=== PATIENT | female | born 1960 | race Caucasian/White ===

== ENCOUNTER → 2024-10-02 | Outpatient (CLI) | payer BC, SELFPAY ==
[2024-10-02 11:40] LABS: Glucose Estimated Average 157 mg/dL (80-131); Hemoglobin A1C 7.1 % Hgb (4.8-6.0)
[2024-10-02 11:55] LABS: Alanine Aminotransferase 143 U/L (10-49); Albumin/Globulin Ratio 2.1 (1.2-2.2); Alkaline Phosphatase 74 U/L (46-116); Anion Gap 10 (7-16); Aspartate Amino Transferase 128 U/L (0-34); BUN/Creatinine Ratio 15 Ratio (12-20); Bilirubin,Total 0.4 mg/dL (0.3-1.2); Blood Urea Nitrogen 15 mg/dL (9-23); Carbon Dioxide 24.1 mMol/L (20.0-31.0); Chloride 109 mMol/L (98-107); Globulin 2.4 gm/dL (2.3-3.5); Glucose 132 mg/dL (74-106); Osmolality,Calculated 287 (275-295); Sodium 143 mMol/L (136-145); Total Protein 7.4 gm/dL (5.7-8.2); eGFR > 60 See Note
== END | disposition home or self-care (01) ==
LOC: COPL 10:37
PROVIDERS: PCP Family Medicine; Referring Provider Family Medicine; Visit Provider Family Medicine
DX: E11.65 Type 2 diabetes mellitus with hyperglycemia (principal)
CPT/HCPCS: 36415; 80053; 83036

== ENCOUNTER → 2024-10-19 | Outpatient (CLI) | payer BC, SELFPAY ==
--- NOTE | 2024-10-19 09:59 | XR_ITS ---
Examination: Duplex scan of the lower extremity, unilateral left complete Date and time of exam: October 19, 2024 1033 hours INDICATIONS: Left knee swelling and pain beginning one month ago Technique: Duplex scan of the extremity veins using B-mode/grayscale imaging and Doppler spectral analysis and color flow Attention is directed to internal echogenicity, compression and augmentation involving these veins, color flow assessment, spectral analysis Findings: Major deep venous structures in the extremity demonstrate normal course and caliber. There is no evidence of deep vein thrombosis. Normal color flow and spectral analysis Left popliteal cyst 4.2 cm Impression: Negative for DVT..
--- NOTE | 2024-10-19 10:01 | XR_ITS ---
Examination: Knee, left , 3 views Technique: Knee AP, lateral, oblique 3 views Date and time of exam: October 19, 2024 1045 hours INDICATIONS: Left knee pain and swelling beginning 2 months ago. FINDINGS: Moderate narrowing medial joint space Mild osteoarthritis patellofemoral joint Moderate knee effusion No fracture IMPRESSION: Moderate narrowing medial joint space
== END | disposition home or self-care (01) ==
LOC: CDIM 09:37
PROVIDERS: PCP Family Medicine; Referring Provider Family Medicine; Visit Provider Family Medicine
DX: M25.862 Other specified joint disorders, left knee (principal)
CPT/HCPCS: 73562; 93971

== ENCOUNTER → 2025-01-31 | Outpatient (CLI) | payer BC, SELFPAY ==
--- NOTE | 2025-01-31 09:00 | XR_ITS ---
Examination: Breast ultrasound, unilateral, left complete Date and time of exam: January 31, 2025 0848 hours INDICATIONS: Left breast sonogram July 20, 2024 BI-RADS 4 suspicious mass 12:00 position left breast 4.6 x 3.6 cm Technique: Real-time seo scale ultrasonographic imaging performed left breast including all 4 quadrants as well as nipple retroareolar and axillary region. Findings: 12:00 oval mass indistinct margins 2.9 x 0.9 x 2.9 cm IMPRESSION: BI-RADS Category 4: Suspicious for malignancy Suspicious mass 12:00 position left breast, biopsy is needed to exclude breast carcinoma, this mass is amenable to ultrasound-guided breast biopsy for diagnosis
--- NOTE | 2025-01-31 09:45 | XR_ITS ---
Examination: Diagnostic digital mammography, unilateral, left Computer aided detection 3-D breast Tomosynthesis, unilateral Date and time of exam: January 31, 2025 0916 hours INDICATIONS: Dystrophic calcifications left breast on mammogram July 06, 2024 Technique: Nonmagnified MLO, CC views of the left breast have been obtained, reconstructed from 3-D Tomosynthesis images. R2 computer aided detection program utilized for evaluation of suspicious masses and/or abnormal calcifications. 3-D Tomosynthesis images obtained. Findings: Scattered areas of fibroglandular density. Stable calcifications 12:00 position left breast with left breast biopsy marker Please see the left breast sonogram report today indicating 12:00 mass indistinct margins 2.9 x 0.9 x 2.9 cm Impression: BI-RADS category 4: Suspicious for malignancy Please see the left breast sonogram report today indicating BI-RADS 4 suspicious mass 12:00 position left breast, biopsy of this mass under ultrasound guidance is needed to exclude breast carcinoma
== END | disposition home or self-care (01) ==
LOC: CDIM 08:24
PROVIDERS: PCP Family Medicine; Referring Provider Surgery; Visit Provider Surgery
DX: R92.342 Mammographic extreme density, left breast (principal); N63.25 Unspecified lump in the left breast, overlapping quadrants
CPT/HCPCS: 76641; 77061; 77065; G0279

== ENCOUNTER 2025-02-21 13:27 | Outpatient (AMB) | payer BC, SELFPAY ==
[2025-02-21 14:20] VITALS: BP 144/76; PULSE 72; RESP 18; TEMP 36.9; O2SAT 94; BMI 36.8
--- NOTE | 2025-02-21 14:20 | ORTHONT_ITS ---
Vital signs 02/21/25 14:20 Height 1.55 m Height Method Stated Weight 88.592 kg Weight Measurement Method Standing Scale BMI 36.8 BP 144/76 H Blood Pressure Source Automatic Cuff Blood Pressure Location Right Upper Arm Position Sitting Respiration 18 Pulse 72 Pulse Source Monitor Temp 98.4 F Temp Source Temporal Artery Scan Pulse Oximetry (%) 94 L Oxygen Delivery Method Room Air Med/Allergies Allergies & Medications Allergies Penicillins Allergy (Intermediate, Verified 02/21/25 14:21) RASH Medication Reconciliation albuterol sulfate 90 mcg/actuation aerosol inhaler (ProAir HFA) 8.5 g inhalation QID ##0 11/21/12 [History Confirmed 02/21/25] Albuterol Sulfate/Ipratropium * (COMBIVENT *) 2 puff inhalation TID #0 inhalations 12/21/15 [History Confirmed 02/21/25] Azelastine NASAL * (ASTELIN NASAL *) 1 spry Nasally QAM #0 spry 12/21/15 [History Confirmed 02/21/25] Cetirizine TAB (Cetirizine 10mg) 10 mg PO QDAY #0 tabs 12/21/15 [History Confirmed 02/21/25] Hydrocodone/Acetaminophen (NORCO 7.5/325) 7.5 mg PO BID PRN Pain #0 tabs 12/21/15 [History Confirmed 02/21/25] MOMETASONE/FORMOTEROL (DULERA 100 MCG/5 MCG INHALER) 2 puff inhalation QAM ##0 12/21/15 [History Confirmed 02/21/25] RESPIMAT 2.5 mcg inhalation QAM ##0 12/21/15 [History Confirmed 02/21/25] acetazolamide 250 mg tablet 250 mg PO QDAY #0 tabs 12/21/15 [History Confirmed 02/21/25] cholecalciferol (vitamin D3) 125 mcg (5,000 unit) tablet (Vitamin D3) 10,000 unit PO QDAY #0 tabs 12/21/15 [History Confirmed 02/21/25] clindamycin HCl 300 mg capsule 300 mg PO TID #0 caps 12/21/15 [History Confirmed 02/21/25] ibuprofen 200 mg tablet 600 mg PO BID PRN Pain #0 tabs 12/21/15 [History Confirmed 02/21/25] methimazole 5 mg tablet (Tapazole) 2.5 mg PO QOD #0 tabs 12/21/15 [History Confirmed 02/21/25] montelukast 10 mg tablet (Singulair) 10 mg PO HS #0 tabs 12/21/15 [History Confirmed 02/21/25] propylene glycol 0.6 % eye drops (Systane Balance) 1 drp Both eyes BID ##0 12/21/15 [History Confirmed 02/21/25] ipratropium 20 mcg-albuterol 100 mcg/actuation mist for inhalation (Combivent Respimat) 1 puff inhalation Q8HR PRN Shortness Of Breath 08/15/19 [History Confirmed 02/21/25] simvastatin 20 mg tablet 20 mg PO QPM 08/15/19 [History Confirmed 02/21/25] Exam Exam Patient is in no acute distress and is cooperative with the examination today. Breathing is nonlabored. Patient has a normal mood and affect. Bilateral extremities were evaluated and demonstrates sensation intact to light touch. Palpable pedal pulses are present. No significant edema is present. Bilateral hips were examined. The patient has no pain with log roll of the hips. Internal rotation to 30 degrees and external rotation to 30 degrees is painless. Negative FADIR. Right knee was examined today. The right knee is in reasonable alignment. Range of motion from 0-120 degrees. Knee is stable to varus and valgus as well as AP translation with <5mm. Patient has a negative McMurrays. There is no pain with patellofemoral compression and no crepitus noted. The knee is nontender to palpation. Left knee was examined today. The left knee is in varus alignment. Range of motion from 0-115 degrees. Knee is stable to varus and valgus as well as AP translation with <5mm. Patient has a negative McMurrays. There is no pain with patellofemoral compression and no crepitus noted. The knee is tender to palpation medially. X-rays demonstrate moderate joint space narrowing. Patient also has an MRI dated 01/18/2025 from [facility]. This demonstrates a bone marrow contusion as well as degenerative changes. Assessment and Plan Problem List (1) Arthritis of knee: Status: Acute Plan: Patient is a 64-year-old female with a left knee arthritis of moderate severity. We Will get weightbearing x-rays to evaluate evaluate the severity. We also offered a cortisone injection. She would like to just continue with celebrex at this time. Office Procedures GNS Level of Care Nursing/Assessment Patient Status: Established Patient Nursing Assessment/Reassesment: Medication Reconciliation, Update PMH in EMR and Vital Signs Coordination of Care: Complex Care and Chronic Disease 1-5, Education Complex Pt/Fam, Consent,records obtained, informed consent, Results/Orders obtained and Staff clarify orders Established Patient Charge Established Patient Point Assignment: 95 Established Patient Point Charge: EP Level 3 (80-115) MA Intake Visit Data Collection New Patient or Established: Established Patient (seen at [facility] within 3 years) Reason for Visit:: LEFT KNEE PAIN Seen by Clinical Staff ONLY (RN/MA): No Verbal consent obtained for Telemed visit?: No 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 PCP or OBGYN visit in last 3 months: Yes Hx Now: No Do You Feel Safe at Home: Yes Authorities Contacted: N/A Questionairres Past Medical History Past Medical History Have you ever been diagnosed with any of the following: Neurological Problems Parkinson's Disease: No Seizures: No Hernandez's Palsy: Yes Cardiology Problems Congestive Heart Failure: No Respiratory Problems Chronic Obstructive Pulmonary Disease (COPD): Yes Bronchitis: Yes Sleep Apnea: Yes Genital/Urinary Problems Renal Disease: No Reproductive Problems Pelvic Inflammatory Disease: No Previous Pregnancies: Yes (2) Endocrine Problems Diabetes Mellitus Type 1: No Diabetes Mellitus Type 2: No Hyperthyroidism: Yes (NO MEIDCATION TAKEN) Graves' Disease: Yes Other Problems Radiation Therapy: Yes (BOTH EYES) Chicken Pox: Yes Surgical History Thyroidectomy: No Subjective Visit Visit for: follow up visit and knee Immunization / Flu Flu Vaccine in the Last 12 Months: No Flu Vaccine Exclusion Criteria: No Exclusion Criteria History of Present Illness Chief complaint: LEFT KNEE PAIN Date of injury / onset of symptoms: 4 MONTHS Cele is a pleasant 64-year-old female with left knee pain. This been ongoing for about 6 months. She is an MRI and x-ray. This demonstrates degenerative changes in her left knee including meniscal tears as well as significant arthritis. She has not had any injections and is tried Celebrex which she says has helped tremendously. 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
--- NOTE | 2025-02-21 14:36 | XR_ITS ---
Examination: Left knee 4 views TECHNIQUE: AP oblique lateral axial left knee 4 views Date and time: February 21, 2025 1451 hours INDICATIONS: Knee pain months FINDINGS: Advanced narrowing medial joint space left knee Moderate osteoarthritis patellofemoral joint No fracture No patellar dislocation IMPRESSION: Advanced narrowing medial joint space left knee
== END 2025-02-21 14:40 | disposition home or self-care (01) ==
LOC: HODSRG 13:27
PROVIDERS: PCP Orthopaedic Surgery; Referring Provider Orthopaedic Surgery; Supervising Provider Orthopaedic Surgery Adult Reconstructive Orthopaedic Surgery; Visit Provider Orthopaedic Surgery Adult Reconstructive Orthopaedic Surgery
DX: M17.12 Unilateral primary osteoarthritis, left knee (principal); M25.562 Pain in left knee
CPT/HCPCS: 73564; 99213; G0463

== ENCOUNTER 2025-03-13 13:28 | Outpatient (AMB) | payer BC, SELFPAY ==
[2025-03-13 13:37] VITALS: BP 130/74; PULSE 65; RESP 18; TEMP 36.7; O2SAT 95; BMI 35.9
--- NOTE | 2025-03-13 13:37 | PD.ORTHCLVIS ---
Vital signs 03/13/25 13:37 Height 1.55 m Height Method Stated Weight 86.438 kg Weight Measurement Method Standing Scale BMI 35.9 BP 130/74 Blood Pressure Source Automatic Cuff Blood Pressure Location Left Upper Arm Position Sitting Respiration 18 Pulse 65 Pulse Source Monitor Temp 98.0 F Temp Source Temporal Artery Scan Pulse Oximetry (%) 95 Oxygen Delivery Method Room Air Med/Allergies Allergies & Medications Allergies Penicillins Allergy (Intermediate, Verified 03/13/25 13:37) RASH Medication Reconciliation albuterol sulfate 90 mcg/actuation aerosol inhaler (ProAir HFA) 8.5 g inhalation QID ##0 11/21/12 [History Confirmed 03/13/25] Albuterol Sulfate/Ipratropium * (COMBIVENT *) 2 puff inhalation TID #0 inhalations 12/21/15 [History Confirmed 03/13/25] Azelastine NASAL * (ASTELIN NASAL *) 1 spry Nasally QAM #0 spry 12/21/15 [History Confirmed 03/13/25] Cetirizine TAB (Cetirizine 10mg) 10 mg PO QDAY #0 tabs 12/21/15 [History Confirmed 03/13/25] Hydrocodone/Acetaminophen (NORCO 7.5/325) 7.5 mg PO BID PRN Pain #0 tabs 12/21/15 [History Confirmed 03/13/25] MOMETASONE/FORMOTEROL (DULERA 100 MCG/5 MCG INHALER) 2 puff inhalation QAM ##0 12/21/15 [History Confirmed 03/13/25] RESPIMAT 2.5 mcg inhalation QAM ##0 12/21/15 [History Confirmed 03/13/25] acetazolamide 250 mg tablet 250 mg PO QDAY #0 tabs 12/21/15 [History Confirmed 03/13/25] cholecalciferol (vitamin D3) 125 mcg (5,000 unit) tablet (Vitamin D3) 10,000 unit PO QDAY #0 tabs 12/21/15 [History Confirmed 03/13/25] clindamycin HCl 300 mg capsule 300 mg PO TID #0 caps 12/21/15 [History Confirmed 03/13/25] ibuprofen 200 mg tablet 600 mg PO BID PRN Pain #0 tabs 12/21/15 [History Confirmed 03/13/25] methimazole 5 mg tablet (Tapazole) 2.5 mg PO QOD #0 tabs 12/21/15 [History Confirmed 03/13/25] montelukast 10 mg tablet (Singulair) 10 mg PO HS #0 tabs 12/21/15 [History Confirmed 03/13/25] propylene glycol 0.6 % eye drops (Systane Balance) 1 drp Both eyes BID ##0 12/21/15 [History Confirmed 03/13/25] ipratropium 20 mcg-albuterol 100 mcg/actuation mist for inhalation (Combivent Respimat) 1 puff inhalation Q8HR PRN Shortness Of Breath 08/15/19 [History Confirmed 03/13/25] simvastatin 20 mg tablet 20 mg PO QPM 08/15/19 [History Confirmed 03/13/25] Exam Exam Patient is in no acute distress and is cooperative with the examination today. Breathing is nonlabored. Patient has a normal mood and affect. Bilateral extremities were evaluated and demonstrates sensation intact to light touch. Palpable pedal pulses are present. No significant edema is present. Bilateral hips were examined. The patient has no pain with log roll of the hips. Internal rotation to 30 degrees and external rotation to 30 degrees is painless. Negative FADIR. Right knee was examined today. The right knee is in reasonable alignment. Range of motion from 0-120 degrees. Knee is stable to varus and valgus as well as AP translation with <5mm. Patient has a negative McMurrays. There is no pain with patellofemoral compression and no crepitus noted. The knee is nontender to palpation. Left knee was examined today. The left knee is in varus alignment. Range of motion from 0-115 degrees. Knee is stable to varus and valgus as well as AP translation with <5mm. Patient has a negative McMurrays. There is no pain with patellofemoral compression and no crepitus noted. The knee is tender to palpation medially. X-rays demonstrate moderate joint space narrowing. Patient also has an MRI dated 01/18/2025 from [facility]. This demonstrates a bone marrow contusion as well as degenerative changes. Assessment and Plan Problem List (1) Arthritis of knee: Status: Acute Plan: Patient is a 64-year-old female with a left knee arthritis of moderate severity. We Will get weightbearing x-rays to evaluate evaluate the severity. We also offered a cortisone injection. She would like to just continue with celebrex at this time. Recommend knee cortisone injection as patient would like to proceed with conservative treatment at this time. The risks and benefits of the procedure were reviewed with the patient and patient gave verbal consent to continue with the procedure. Procedure: performed by Dr. Reese Using sterile technique the left knee was thoroughly prepped with alcohol, and approximately 1 cc of Kenalog 40 mg/mL and 4 cc of 1% lidocaine was injected without resistance into the medial tibial femoral joint space. The patient tolerated the procedure. Office Procedures GNS Level of Care Nursing/Assessment Patient Status: Established Patient Nursing Assessment/Reassesment: Medication Reconciliation, Update PMH in EMR and Vital Signs Coordination of Care: Complex Care and Chronic Disease 1-5, Education Complex Pt/Fam, Consent,records obtained, informed consent, Results/Orders obtained and Staff clarify orders Established Patient Charge Established Patient Point Assignment: 95 Established Patient Point Charge: EP Level 3 (80-115) MA Intake Visit Data Collection New Patient or Established: Established Patient (seen at [facility] within 3 years) Reason for Visit:: XRAY RESULTS/REQ L KNEE INJ Seen by Clinical Staff ONLY (RN/MA): No PCP or OBGYN visit in last 3 months: Yes Hx Now: No Do You Feel Safe at Home: Yes Authorities Contacted: N/A Questionairres Past Medical History Past Medical History Have you ever been diagnosed with any of the following: Neurological Problems Parkinson's Disease: No Seizures: No Hernandez's Palsy: Yes Cardiology Problems Congestive Heart Failure: No Respiratory Problems Chronic Obstructive Pulmonary Disease (COPD): Yes Bronchitis: Yes Sleep Apnea: Yes Smoking: No Smoking Exposure: No Genital/Urinary Problems Renal Disease: No Reproductive Problems Pelvic Inflammatory Disease: No Previous Pregnancies: Yes (2) Endocrine Problems Diabetes Mellitus Type 1: No Diabetes Mellitus Type 2: No Hyperthyroidism: Yes (NO MEIDCATION TAKEN) Graves' Disease: Yes Other Problems Radiation Therapy: Yes (BOTH EYES) Chicken Pox: Yes Surgical History Thyroidectomy: No Subjective Visit Visit for: follow up visit, knee (LEFT) and x-rays Immunization / Flu Flu Vaccine in the Last 12 Months: No Flu Vaccine Exclusion Criteria: No Exclusion Criteria History of Present Illness Chief complaint: LEFT KNEE PAIN Date of injury / onset of symptoms: 4 MONTHS Cele is a pleasant 64-year-old female with left knee pain. This been ongoing for about 6 months. She is an MRI and x-ray. This demonstrates degenerative changes in her left knee including meniscal tears as well as significant arthritis. She has not had any injections and is tried Celebrex which she says has helped tremendously. 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
== END 2025-03-13 13:54 | disposition home or self-care (01) ==
LOC: HODSRG 13:28
PROVIDERS: PCP Orthopaedic Surgery; Referring Provider Orthopaedic Surgery; Supervising Provider Orthopaedic Surgery Adult Reconstructive Orthopaedic Surgery; Visit Provider Orthopaedic Surgery Adult Reconstructive Orthopaedic Surgery
DX: M17.12 Unilateral primary osteoarthritis, left knee (principal); J44.9 Chronic obstructive pulmonary disease, unspecified; M25.562 Pain in left knee
CPT/HCPCS: 20610; 99213; J3301; J3490; G0463

== ENCOUNTER → 2025-04-16 | Outpatient (CLI) | payer BC, SELFPAY ==
[2025-04-16 09:51] LABS: Glucose Estimated Average 189 mg/dL (80-131); Hemoglobin A1C 8.2 % Hgb (4.8-6.0)
[2025-04-16 09:53] LABS: Alanine Aminotransferase 172 U/L (10-49); Albumin, Serum 4.6 gm/dL (3.4-4.8); Albumin/Globulin Ratio 1.6 (1.2-2.2); Alkaline Phosphatase 76 U/L (46-116); Anion Gap 10 (7-16); Aspartate Amino Transferase 142 U/L (0-34); BUN/Creatinine Ratio 12 Ratio (12-20); Bilirubin,Total 0.5 mg/dL (0.3-1.2); Blood Urea Nitrogen 11 mg/dL (9-23); Calcium 9.9 mg/dL (8.3-10.6); Calcium (Corrected) 9.9 mg/dL (8.5-10.1); Carbon Dioxide 22.4 mMol/L (20.0-31.0); Cardiac Risk Estimate 6.1 RATIO (3.7-5.6); Chloride 109 mMol/L (98-107); Cholesterol 263 mg/dL (132-200); Creatinine (Component) 0.9 mg/dL (0.6-1.3); Globulin 2.9 gm/dL (2.3-3.5); Glucose 175 mg/dL (74-106); HDL Cholesterol 43 mg/dL (40-60); LDL Cholesterol,Calculated 175 mg/dL (0-130); Osmolality,Calculated 284 (275-295); Potassium 4.3 mMol/L (3.4-5.1); Sodium 141 mMol/L (136-145); Total Protein 7.5 gm/dL (5.7-8.2); Triglycerides 226 mg/dL (30-150); eGFR > 60 See Note
== END | disposition home or self-care (01) ==
PROVIDERS: PCP Family Medicine; Referring Provider Family Medicine; Visit Provider Family Medicine
DX: I10 Essential (primary) hypertension (principal); E11.65 Type 2 diabetes mellitus with hyperglycemia; E78.2 Mixed hyperlipidemia; K76.0 Fatty (change of) liver, not elsewhere classified
CPT/HCPCS: 36415; 80053; 80061; 83036

== ENCOUNTER 2025-06-13 13:32 | Outpatient (AMB) | payer BC, SELFPAY ==
--- NOTE | 2025-06-13 13:42 | ORTHONT_ITS ---
Vital signs 06/13/25 13:45 Height 1.55 m Height Method Measured Weight 82.214 kg Weight Measurement Method Standing Scale BMI 34.2 BP 126/73 Blood Pressure Source Automatic Cuff Blood Pressure Location Left Upper Arm Position Sitting Respiration 18 Pulse 79 Pulse Source Monitor Temp 98.0 F Temp Source Temporal Artery Scan Pulse Oximetry (%) 93 L Oxygen Delivery Method Room Air Med/Allergies Allergies & Medications Allergies Penicillins Allergy (Intermediate, Verified 06/13/25 13:48) RASH Medication Reconciliation albuterol sulfate 90 mcg/actuation aerosol inhaler (ProAir HFA) 8.5 g inhalation QID ##0 11/21/12 [History Confirmed 06/13/25] Albuterol Sulfate/Ipratropium * (COMBIVENT *) 2 puff inhalation TID #0 inhalations 12/21/15 [History Confirmed 06/13/25] Azelastine NASAL * (ASTELIN NASAL *) 1 spry Nasally QAM #0 spry 12/21/15 [History Confirmed 06/13/25] Cetirizine TAB (Cetirizine 10mg) 10 mg PO QDAY #0 tabs 12/21/15 [History Confirmed 06/13/25] Hydrocodone/Acetaminophen (NORCO 7.5/325) 7.5 mg PO BID PRN Pain #0 tabs 12/21/15 [History Confirmed 06/13/25] MOMETASONE/FORMOTEROL (DULERA 100 MCG/5 MCG INHALER) 2 puff inhalation QAM ##0 12/21/15 [History Confirmed 06/13/25] RESPIMAT 2.5 mcg inhalation QAM ##0 12/21/15 [History Confirmed 06/13/25] acetazolamide 250 mg tablet 250 mg PO QDAY #0 tabs 12/21/15 [History Confirmed 06/13/25] cholecalciferol (vitamin D3) 125 mcg (5,000 unit) tablet (Vitamin D3) 10,000 unit PO QDAY #0 tabs 12/21/15 [History Confirmed 06/13/25] clindamycin HCl 300 mg capsule 300 mg PO TID #0 caps 12/21/15 [History Confirmed 06/13/25] ibuprofen 200 mg tablet 600 mg PO BID PRN Pain #0 tabs 12/21/15 [History Confirmed 06/13/25] methimazole 5 mg tablet (Tapazole) 2.5 mg PO QOD #0 tabs 12/21/15 [History Confirmed 06/13/25] montelukast 10 mg tablet (Singulair) 10 mg PO HS #0 tabs 12/21/15 [History Confirmed 06/13/25] propylene glycol 0.6 % eye drops (Systane Balance) 1 drp Both eyes BID ##0 12/21/15 [History Confirmed 06/13/25] ipratropium 20 mcg-albuterol 100 mcg/actuation mist for inhalation (Combivent Respimat) 1 puff inhalation Q8HR PRN Shortness Of Breath 08/15/19 [History Confirmed 06/13/25] simvastatin 20 mg tablet 20 mg PO QPM 08/15/19 [History Confirmed 06/13/25] Exam Exam Patient is in no acute distress and is cooperative with the examination today. Breathing is nonlabored. Patient has a normal mood and affect. Bilateral extremities were evaluated and demonstrates sensation intact to light touch. Palpable pedal pulses are present. No significant edema is present. Bilateral hips were examined. The patient has no pain with log roll of the hips. Internal rotation to 30 degrees and external rotation to 30 degrees is painless. Negative FADIR. Right knee was examined today. The right knee is in reasonable alignment. Range of motion from 0-120 degrees. Knee is stable to varus and valgus as well as AP translation with <5mm. Patient has a negative McMurrays. There is no pain with patellofemoral compression and no crepitus noted. The knee is nontender to palpation. Left knee was examined today. The left knee is in varus alignment. Range of motion from 0-115 degrees. Knee is stable to varus and valgus as well as AP translation with <5mm. Patient has a negative McMurrays. There is no pain with patellofemoral compression and no crepitus noted. The knee is tender to palpation medially. X-rays demonstrate moderate joint space narrowing. Patient also has an MRI dated 01/18/2025 from [facility]. This demonstrates a bone marrow contusion as well as degenerative changes. Assessment and Plan Problem List (1) Arthritis of knee: Status: Acute Plan ASSESSMENT AND PLAN 1. Left knee pain: The pain relief from the previous injection has lasted for 3 months, but there is now some clicking in the knee. She is a candidate for a partial knee replacement if needed in the future. An injection will be administered today. She is advised to monitor the effectiveness of the injection and consider postponing the next appointment if the relief continues. The benefits of postponing the next appointment were discussed, including the possibility of extending the duration of pain relief. Risks such as the unpredictability of pain recurrence were also addressed. Future treatment options, including partial knee replacement, were discussed as a viable alternative to full knee replacement. Recommend knee cortisone injection as patient would like to proceed with conservative treatment at this time. The risks and benefits of the procedure were reviewed with the patient and patient gave verbal consent to continue with the procedure. Procedure: performed by Dr. Reese Using sterile technique the left knee was thoroughly prepped with alcohol, and approximately 1 cc of Depo-Medrol 80mg/mL and 4 cc of 0.2% ropivacaine was injected without resistance into the medial tibial femoral joint space. The patient tolerated the procedure. Office Procedures GNS Level of Care Nursing/Assessment Patient Status: Established Patient Nursing Assessment/Reassesment: Medication Reconciliation, Update PMH in EMR and Vital Signs Coordination of Care: Complex Care and Chronic Disease 1-5, Education Complex Pt/Fam, Consent,records obtained, informed consent, Results/Orders obtained and Staff clarify orders Established Patient Charge Established Patient Point Assignment: 95 Established Patient Point Charge: EP Level 3 (80-115) Surgical Proc/IM SQ injection Minor Surgical Procedure: Yes (KNEE INJECTION) Medication Given Medication Given Medication Given: Yes Documented Dose Given: 1 Route: Infiitration Medication Given Medication Given Medication Given: Yes Documented Dose Given: 4 Route: Infiitration Office Meds methylprednisolone acetate 80 mg/mL suspension for injection Performing Provider: Tien Reese MD Performing Location: [facility] Administered by: Tien Reese MD on 06/13/25 13:48 Dose Route Admin Location Dispensed Lot Number Expiration Date Pack age [facility] Material Specialist 80 mg intra-articular KNEE 1 mL [id number] 08/18/26 [address]-9 [id number] [employer] ropivacaine (PF) 2 mg/mL (0.2 %) injection solution Performing Provider: Tien Reese MD Performing Location: [facility] Administered by: Tien Reese MD on 06/13/25 13:48 Dose Route Admin Location Dispensed Lot Number Expiration Date Pack age [facility] NDC Material Specialist 20 mL Infiltration KNEE 20 mL [id number] 10/19/27 45193-486-81 [id number] [facility] Intake Visit Data Collection New Patient or Established: Established Patient (seen at [facility] within 3 years) Reason for Visit:: 3 MONTH F/U KNEE INJECTION Seen by Clinical Staff ONLY (RN/MA): No Sap Data Architect Required: No PCP or OBGYN visit in last 3 months: Yes Hx Now: No Do You Feel Safe at Home: Yes Authorities Contacted: N/A Questionairres Past Medical History Past Medical History Have you ever been diagnosed with any of the following: Neurological Problems Parkinson's Disease: No Seizures: No Hernandez's Palsy: Yes Cardiology Problems Congestive Heart Failure: No Respiratory Problems Chronic Obstructive Pulmonary Disease (COPD): Yes Bronchitis: Yes Sleep Apnea: Yes Smoking: No Smoking Exposure: No Genital/Urinary Problems Renal Disease: No Reproductive Problems Pelvic Inflammatory Disease: No Previous Pregnancies: Yes (2) Endocrine Problems Diabetes Mellitus Type 1: No Diabetes Mellitus Type 2: No Hyperthyroidism: Yes (NO MEIDCATION TAKEN) Graves' Disease: Yes Other Problems Radiation Therapy: Yes (BOTH EYES) Chicken Pox: Yes Surgical History Thyroidectomy: No Subjective Visit Visit for: follow up visit, knee (LEFT) and x-rays Immunization / Flu Flu Vaccine in the Last 12 Months: No Flu Vaccine Exclusion Criteria: No Exclusion Criteria History of Present Illness Chief complaint: LEFT KNEE PAIN Date of injury / onset of symptoms: 4 MONTHS HISTORY OF PRESENT ILLNESS I, Tien Reese, have obtained verbal consent from the patient, to be recorded during this encounter which may include, but not limited to, medical history, examination, treatment plans, and relevant health information.? Patient was informed that recording will be read and reviewed by myself before inclusion in the medical chart. The patient presents for evaluation of left knee pain. She reports a significant improvement in her left knee condition following an injection administered 3 months ago. The relief from the injection is still persisting, but she has recently noticed a slight clicking sound in the knee. 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
[2025-06-13 13:45] VITALS: BP 126/73; PULSE 79; RESP 18; TEMP 36.7; O2SAT 93; BMI 34.2
== END 2025-06-13 13:54 | disposition home or self-care (01) ==
LOC: HODSRG 13:32
PROVIDERS: PCP Orthopaedic Surgery; Referring Provider Orthopaedic Surgery; Supervising Provider Orthopaedic Surgery Adult Reconstructive Orthopaedic Surgery; Visit Provider Orthopaedic Surgery Adult Reconstructive Orthopaedic Surgery
DX: M17.9 Osteoarthritis of knee, unspecified (principal); M25.562 Pain in left knee; J44.9 Chronic obstructive pulmonary disease, unspecified
CPT/HCPCS: 20610; 99213; J1010; J2795; G0463

== ENCOUNTER → 2025-07-09 | Outpatient (CLI) | payer BC, SELFPAY ==
[2025-07-09 08:49] LABS: Hemoglobin A1C 6.0 % Hgb (4.8-6.0)
[2025-07-09 08:50] LABS: Glucose Estimated Average 126 mg/dL (80-131)
[2025-07-09 08:57] LABS: Creatinine MALB Rnd Ur 86 mg/dL (30-125); Microalbumin Creat Ratio 7 mg/gCrea (<30); Microalbumin, Random Urine 6 mg/L (0-300)
[2025-07-09 09:15] LABS: Cardiac Risk Estimate 4.6 RATIO (3.7-5.6); Cholesterol 232 mg/dL (132-200); HDL Cholesterol 50 mg/dL (40-60); LDL Cholesterol,Calculated 153 mg/dL (0-130); Triglycerides 147 mg/dL (30-150)
[2025-07-15 06:39] LABS: Fecal Globin Result NOT DETECTED (NOT DETECTED)
== END | disposition home or self-care (01) ==
LOC: COPL 07:42
PROVIDERS: PCP Family Medicine; Referring Provider Family Medicine; Visit Provider Family Medicine
DX: E11.65 Type 2 diabetes mellitus with hyperglycemia (principal); E78.2 Mixed hyperlipidemia; Z12.11 Encounter for screening for malignant neoplasm of colon
CPT/HCPCS: 36415; 80061; 82043; 82274; 82570; 83036; G0328